=== PATIENT | female | born 1995 | race African-American/Black ===

== ENCOUNTER 2021-10-25 01:55 | Emergency (ER) | payer OTHER ==
[~2021-10-25] VITALS: Ht 160 cm; Wt 105.2 kg
== END 2021-10-25 14:07 | disposition home or self-care (01) ==
LOC: ER 01:55
DX: R10.13 Epigastric pain (principal); Z87.09 Personal history of other diseases of the respiratory system; R11.10 Vomiting, unspecified

== ENCOUNTER 2022-09-26 08:49 | Emergency (ER) | payer OTHER ==
[~2022-09-26] VITALS: Ht 160 cm; Wt 73.9 kg
[2022-09-26] MEDS ORDERED: PRENATABS FA T1 EACH (09:43)
[2022-09-26] MEDS ORDERED: PRENA1 TRUE CO1 EACH PO (12:04)
[2022-09-26] MEDS ORDERED: ONDANSETRON ODT8 MG PO (12:04)
== END 2022-09-26 12:20 | disposition home or self-care (01) ==
LOC: ER 08:49
DX: O21.0 Mild hyperemesis gravidarum (principal); Z3A.01 Less than 8 weeks gestation of pregnancy